=== PATIENT | male | born 1955 | race Caucasian/White ===

== ENCOUNTER 2018-08-04 05:24 | Inpatient (IN) | payer OTHER ==
[2018-07-29 10:41] LABS: BASOPHILS % (AUTO) 0.4 % (0-1); EOSINOPHILS # (AUTO) 0.3 X10'3 (0-0.9); EOSINOPHILS % (AUTO) 3.8 % (0-6); LYMPHOCYTES # (AUTO) 1.7 X10'3 (1.1-4.8); LYMPHOCYTES % (AUTO) 25.1 % (21-51); MEAN CORPUSCULAR HEMOGLOBIN 26.5 PG (27.0-31.0); MEAN CORPUSCULAR HGB CONC 32.5 % (33.0-36.5); MEAN CORPUSCULAR VOLUME 81.4 FL (78-98); MEAN PLATELET VOLUME 8.9 FL (7.4-10.4); MONOCYTES # (AUTO) 0.4 X10'3 (0-0.9); MONOCYTES % (AUTO) 5.8 % (2-12); NEUTROPHILS # (AUTO) 4.5 X10'3 (1.8-7.7); NEUTROPHILS % (AUTO) 64.9 % (42-75); PRE OP HEMATOCRIT 48.1 % (42.0-52.0); PRE OP HEMOGLOBIN 15.6 g/dL (14.0-17.9); PRE OP PLATELET COUNT 260 X10'3 (140-440); RED BLOOD COUNT 5.91 X10'6 (4.70-6.10); RED CELL DISTRIBUTION WIDTH 13.2 % (11.5-14.5)
[2018-07-29 11:07] LABS: ALBUMIN/GLOBULIN RATIO 1.1 (1.1-1.5); ALKALINE PHOSPHATASE 85 IU/L (46-116); BLOOD UREA NITROGEN 19 MG/DL (7-18); CALCIUM 9.5 MG/DL (8.5-10.1); CHLORIDE 105 MMOL/L (99-107); CREATININE 0.95 MG/DL (0.60-1.10); PRE OP ALT 33 U/L (30-65); PRE OP ANION GAP 11 (8-16); PRE OP AST 18 U/L (10-37); PRE OP BILIRUB, TOTAL 0.3 MG/DL (0.0-1.0); PRE OP GLUCOSE 104 MG/DL (70-104); PRE OP POTASSIUM 4.1 MMOL/L (3.4-5.1); PRE OP SODIUM 140 MMOL/L (135-145); TOTAL PROTEIN 7.8 G/DL (6.4-8.2); eGFR 80 ML/MIN
[~2018-08-04] VITALS: Ht 165.1 cm; Wt 85.9 kg
[2018-08-04] VITALS (18 sets, daily range): BP systolic 96–126; BP diastolic 27–81
[~2018-08-04 05:24] MED LIST: ATOR10TA70 PO; FENO145T25 PO; LANS30CA56 PO; ringers solution, lacted 1,000 ML IV SCH
[2018-08-04] MEDS ORDERED: famotidine 20mg tablet PO ONE (05:30)
[2018-08-04] MEDS ORDERED: VANCOMYCIN INJ 1000 MG in NORMAL SALINE 250ml IV.SOLN IV ONE (05:30)
[2018-08-04] MEDS ORDERED: MESSAGE TO NURSING PO ONE (06:00)
[2018-08-04] MEDS ORDERED: tranexamic acid inj. 1,000 MG in normal saline 100ml IV soln 90 ML IV ONE (06:00)
[2018-08-04] MEDS ORDERED: cefazolin/dext.iso 2gm/100 ML IV ONE (06:03)
[2018-08-04] MEDS ORDERED: vancomycin inj 1,500 MG in normal saline 300ml IV soln IV ONE (06:06)
[2018-08-04] MEDS ORDERED: LIDOcaine 1% (10mg/ml) 2ml vial ONE (06:24)
[2018-08-04] MEDS ORDERED: tetracaine 1% (10mg/ml) pres. free inj. ONE (07:25)
[2018-08-04] MEDS ORDERED: fentaNYL/PF 50MCG/1 ML 2ML syringe ONE (07:28)
[2018-08-04] MEDS ORDERED: MIDAZolam 5mg/5ml vial ONE (07:28)
[2018-08-04] MEDS ORDERED: BUPIVAcaine/PF 7.5mg/ml (0.75%) 10ml vial ONE (07:29)
[2018-08-04] MEDS ORDERED: ROPIVAcaine 0.5% (5mg/ml) 30ml vial ONE (08:02)
[2018-08-04] MEDS ORDERED: ringers solution, lacted 1,000 ML IV SCH (09:13)
[2018-08-04] MEDS ORDERED: proCHLORperazine 10 MG/2 ml inj IV PRN (09:15)
[2018-08-04] MEDS ORDERED: ondansetron/PF 4mg/2ml inj IV PRN ×2 (09:15→10:40)
[2018-08-04] MEDS ORDERED: meperidine/PF 25mg/ml syringe IV PRN ×3 (09:15)
[2018-08-04] MEDS ORDERED: morphine 4 MG/ML inj SYRINge IV PRN ×2 (09:15)
[2018-08-04] MEDS ORDERED: bisacodyl 10mg suppository rectal RC PRN (10:40)
[2018-08-04] MEDS ORDERED: magnesium hydroxide 30ml (MOM) UD suspension PO PRN (10:40)
[2018-08-04] MEDS ORDERED: acetaminophen 325mg tablet PO PRN (10:40)
[2018-08-04] MEDS ORDERED: diphenhydrAMINE 25mg capsule PO PRN ×2 (10:40)
[2018-08-04] MEDS ORDERED: HYDROcodone/acetaminophen 10/325mg tab PO PRN (10:40)
[2018-08-04] MEDS ORDERED: diphenhydrAMINE 50 mg/ml inj ONE (11:07)
[2018-08-04] MEDS ORDERED: propofol inj 40 ML IV ONE (11:07)
[2018-08-04] MEDS: HYDROcodone/acetaminophen 10/325mg tab PO PRN ×2 (14:50→20:13)
[2018-08-04] MEDS ORDERED: ceFAZolin 1GM/D5W- ADD-VANTAGE 50 ML IV SCH (16:00)
[2018-08-04] MEDS: potassium Cl 20mEq in NS 1,000 ML IV SCH (16:24)
[2018-08-04] MEDS: HYDROmorphone 1 mg/ml syringe IV PRN ×2 (17:32→21:24)
[2018-08-04] MEDS: aspirin 81mg tablet.DR PO SCH (17:32)
[2018-08-04] MEDS ORDERED: vancomycin/NS 1 GM ADD-VANTAGE 250 ML IV SCH (20:00)
[2018-08-04] MEDS: sennosides 8.6mg tablet PO SCH (20:13)
[2018-08-05] MEDS ORDERED: ceFAZolin/D5W- 1GM premix 50 ML IV SCH (00:22)
[2018-08-05] MEDS: HYDROcodone/acetaminophen 10/325mg tab PO PRN ×4 (01:34→16:08)
[2018-08-05 02:00] VITALS: BP 108/63
[2018-08-05] MEDS: HYDROmorphone 1 mg/ml syringe IV PRN ×3 (04:08→17:20)
[2018-08-05] MEDS: potassium Cl 20mEq in NS 1,000 ML IV SCH ×2 (04:17→13:19)
[2018-08-05 06:05] LABS: BASOPHILS % (AUTO) 0.2 % (0-1); EOSINOPHILS # (AUTO) 0.2 X10'3 (0-0.9); EOSINOPHILS % (AUTO) 1.5 % (0-6); HEMOGLOBIN 12.1 g/dl (14.0-17.9); LYMPHOCYTES # (AUTO) 1.1 X10'3 (1.1-4.8); LYMPHOCYTES % (AUTO) 9.7 % (21-51); MEAN CORPUSCULAR HEMOGLOBIN 26.2 PG (27.0-31.0); MEAN CORPUSCULAR HGB CONC 31.8 % (33.0-36.5); MEAN CORPUSCULAR VOLUME 82.6 FL (78-98); MEAN PLATELET VOLUME 8.5 FL (7.4-10.4); MONOCYTES # (AUTO) 0.8 X10'3 (0-0.9); NEUTROPHILS # (AUTO) 9.1 X10'3 (1.8-7.7); NEUTROPHILS % (AUTO) 81.6 % (42-75); PLATELET COUNT 238 X10'3 (140-440); RED BLOOD COUNT 4.61 X10'6 (4.70-6.10); RED CELL DISTRIBUTION WIDTH 12.9 % (11.5-14.5); WHITE BLOOD COUNT 11.2 X10'3 (4.5-11.0)
[2018-08-05 06:08] LABS: ANION GAP 6 (8-16); CHLORIDE 104 MMOL/L (99-107); POTASSIUM 3.8 MMOL/L (3.5-5.1); SODIUM 138 MMOL/L (135-145); TOTAL CARBON DIOXIDE 27.9 MMOL/L (24-32)
[2018-08-05] MEDS: pantoprazole 40mg Tablet.DR PO SCH (07:41)
[2018-08-05] MEDS: fenofibrate 145mg tablet PO SCH (07:41)
[2018-08-05] MEDS: aspirin 81mg tablet.DR PO SCH ×2 (07:41→17:22)
[2018-08-05 08:54] VITALS: BP 108/67
[2018-08-05 18:00] VITALS: BP 137/76
[2018-08-05] MEDS: oxyCODONE/APAP 10/325mg tablet PO PRN (20:31)
[2018-08-05] MEDS: sennosides 8.6mg tablet PO SCH (20:48)
[2018-08-05 22:00] VITALS: BP 120/67
[2018-08-06] MEDS: potassium Cl 20mEq in NS 1,000 ML IV SCH (02:39)
[2018-08-06] MEDS: oxyCODONE/APAP 10/325mg tablet PO PRN ×3 (04:01→13:55)
[2018-08-06 06:00] VITALS: BP 119/65
[2018-08-06 07:12] LABS: BASOPHILS # (AUTO) 0.1 X10'3 (0-0.2); BASOPHILS % (AUTO) 0.5 % (0-1); EOSINOPHILS # (AUTO) 0.3 X10'3 (0-0.9); EOSINOPHILS % (AUTO) 2.5 % (0-6); HEMATOCRIT 34.4 % (42.0-52.0); HEMOGLOBIN 11.3 g/dl (14.0-17.9); LYMPHOCYTES # (AUTO) 1.5 X10'3 (1.1-4.8); LYMPHOCYTES % (AUTO) 14.7 % (21-51); MEAN CORPUSCULAR HEMOGLOBIN 26.8 PG (27.0-31.0); MEAN CORPUSCULAR HGB CONC 32.8 % (33.0-36.5); MEAN CORPUSCULAR VOLUME 81.7 FL (78-98); MEAN PLATELET VOLUME 8.3 FL (7.4-10.4); MONOCYTES # (AUTO) 0.8 X10'3 (0-0.9); MONOCYTES % (AUTO) 8.1 % (2-12); NEUTROPHILS # (AUTO) 7.5 X10'3 (1.8-7.7); NEUTROPHILS % (AUTO) 74.2 % (42-75); PLATELET COUNT 221 X10'3 (140-440); RED BLOOD COUNT 4.22 X10'6 (4.70-6.10); RED CELL DISTRIBUTION WIDTH 13.1 % (11.5-14.5); WHITE BLOOD COUNT 10.2 X10'3 (4.5-11.0)
[2018-08-06] MEDS: fenofibrate 145mg tablet PO SCH (08:39)
[2018-08-06] MEDS: aspirin 81mg tablet.DR PO SCH (08:39)
[2018-08-06] MEDS: pantoprazole 40mg Tablet.DR PO SCH (08:39)
[2018-08-06] MEDS ORDERED: ASPI-1071 PO (09:18)
[2018-08-06] MEDS ORDERED: PER10325T PO (09:18)
[2018-08-06] MEDS ORDERED: WALKERFR (09:18)
[2018-08-06 10:00] VITALS: BP 120/70
== END 2018-08-06 14:25 | disposition home or self-care (01) | DRG 470 ==
LOC: PAS IN 05:24 → EDSTATUS 07:30 → ORTHO 4S 11:40
PROVIDERS: ADMIT Orthopaedic Surgery; ATTEND Orthopaedic Surgery
PROC: 3E0T3BZ Introduction of Anesthetic Agent into Peripheral Nerves and Plexi, Percutaneous Approach (ICD-10-PCS; 2018-08-04)
PROC: 0SRD0J9 Replacement of Left Knee Joint with Synthetic Substitute, Cemented, Open Approach (ICD-10-PCS; principal; 2018-08-04 07:28)
DX: M17.12 Unilateral primary osteoarthritis, left knee (principal); D62 Acute posthemorrhagic anemia; K21.9 Gastro-esophageal reflux disease without esophagitis; E78.5 Hyperlipidemia, unspecified; Z88.2 Allergy status to sulfonamides; Z79.899 Other long term (current) drug therapy; Z86.73 Personal history of transient ischemic attack (TIA), and cerebral infarction without residual deficits; Z87.891 Personal history of nicotine dependence
CPT/HCPCS: 36415; 80051; 80053; 85025; 85610; 85730; 86885; 86900; 86901; 86920; 87070; 97110; 97116; 97162; 97530; A6454; A7000; C1713; C1758; C1776; G0378; J0690; J1170; J1200; J2250; J2405; J2704; J2795; J3010; J3370; J3490; J7030; J7120